=== PATIENT | female | born 1995 | race Caucasian/White ===

== ENCOUNTER 2020-09-17 21:50 | Emergency (ER) | payer OTHER, SELFPAY ==
--- NOTE | ~2020-09-17 | US_ITS ---
EXAMINATIONS: ULTRASOUND PELVIC, COMPLETE AND DOPPLER INTERROGATION CLINICAL INFORMATION: Bleeding. COMPARISON: None. TECHNIQUE: Transabdominal and transvaginal imaging was performed. Transvaginal imaging was performed for further evaluation of the endometrium and adnexa. Doppler interrogation spectral analysis was performed. FINDINGS: The uterus is of normal size and echogenicity measuring 9.3 x 5.2 x 5.2 cm. A regular homogeneous endometrium is identified measuring 0.9 cm. No intrauterine gestation is demonstrable. Both ovaries are of normal size and echogenicity. The right measures 3.4 x 2.0 x 2.0 cm. This measurement includes an approximately 13 mm cyst. The left measures 2.2 x 2.7 x 1.6 cm. Normal arterial and venous blood flow is present bilaterally. There is a small amount of likely physiologic pelvic free fluid. US/US OB limited IMPRESSION: No intrauterine gestation identified. No adnexal masses demonstrable. 13 mm right ovarian cyst.
--- NOTE | ~2020-09-17 | US_ITS ---
EXAMINATIONS: ULTRASOUND PELVIC, COMPLETE AND DOPPLER INTERROGATION CLINICAL INFORMATION: Bleeding. COMPARISON: None. TECHNIQUE: Transabdominal and transvaginal imaging was performed. Transvaginal imaging was performed for further evaluation of the endometrium and adnexa. Doppler interrogation spectral analysis was performed. FINDINGS: The uterus is of normal size and echogenicity measuring 9.3 x 5.2 x 5.2 cm. A regular homogeneous endometrium is identified measuring 0.9 cm. No intrauterine gestation is demonstrable. Both ovaries are of normal size and echogenicity. The right measures 3.4 x 2.0 x 2.0 cm. This measurement includes an approximately 13 mm cyst. The left measures 2.2 x 2.7 x 1.6 cm. Normal arterial and venous blood flow is present bilaterally. There is a small amount of likely physiologic pelvic free fluid. US/US OB transvaginal IMPRESSION: No intrauterine gestation identified. No adnexal masses demonstrable. 13 mm right ovarian cyst.
[2020-09-17 23:01] VITALS: BP 117/67; PULSE 91; RESP 18; TEMP 36.7; O2SAT 98; BMI 21.0
[2020-09-17 23:31] LABS: Basophils Absolute Auto 0.1 X10*3/uL (0.0-0.2); Basophils Percent Auto 0.6 % (0-2); Eosinophils Absolute Auto 0.5 X10*3/uL (0.0-0.4); Eosinophils Percent Auto 4.4 % (0-4); Hematocrit 35.1 % (37-47); Hemoglobin 11.5 g/dl (12.0-16.0); Imm Gran Abs Auto 0.03 X10*3/uL (0.00-0.03); Imm Gran Pct Auto 0.3 % (0.0-0.4); Lymphocytes Absolute Auto 2.6 X10*3/uL (1.2-4.9); Lymphocytes Percent Auto 24.2 % (20-40); MANUAL DIFF FLAG NO; Mean Corpuscular HGB Conc 32.8 g/dl (31.0-35.0); Mean Corpuscular Hemoglobin 30.8 pg (27.0-33.0); Mean Corpuscular Volume 94.1 fL (80-98); Mean Platelet Volume 9.5 fL (9.4-12.3); Monocytes Absolute Auto 0.8 X10*3/uL (0.1-1.2); Monocytes Percent Auto 7.1 % (2-11); Neutrophils Absolute Auto 6.9 X10*3/uL (2.0-8.3); Neutrophils Percent Auto 63.4 % (45-73); Platelet Count 273 X10*3/uL (160-400); Red Blood Count 3.73 X10*6/uL (4.20-5.50); Red Cell Distribution Width 12.6 % (11.0-16.0); White Blood Count 10.9 X10*3/uL (4.8-10.8)
[2020-09-17 23:34] LABS: Glucose Urine UA NEG (NEG); Leukocyte Esterase Urine NEG (NEG); Nitrite Urine NEG (NEG); Specific Gravity - Urine 1.025 (1.005-1.025); Urine Blood 3+ (NEG); Urine Ketones NEG (NEG); Urine Protein TRACE MG/DL (NEG-TRACE)
[2020-09-17 23:36] LABS: UPreg QC Valid YES; Urine Pregnancy WEAKLY POSITIVE (NEGATIVE)
[2020-09-17 23:37] LABS: Appearance Urine CLEAR; Color Urine YELLOW
[2020-09-17 23:42] LABS: Mucus Urine TRACE /LPF; Squamous Epithelial Cell Urine 2+ /LPF; WBC Urine 0-2 /HPF (0-4)
[2020-09-17 23:52] VITALS: BP 100/72; PULSE 81; RESP 16; TEMP 36.7; O2SAT 98
[2020-09-18 00:03] LABS: Anion Gap 11 (12-20); Blood Urea Nitrogen 9 mg/dL (9-16); Calcium 8.4 mg/dL (8.4-10.2); Carbon Dioxide 26 mmol/L (22-29); Chloride 106 mmol/L (96-108); Creatinine Clr Calc Pharmacy 101.5; Estimated Glomerular Filt Rate > 60; Glucose Random 111 mg/dL (60-115); Potassium 3.7 mmol/L (3.3-5.1); Sodium 139 mmol/L (135-145)
[2020-09-18 01:39] LABS: HCG Quantitative 61 mIU/mL
[2020-09-18 01:42] VITALS: BP 103/64; PULSE 81; RESP 16; TEMP 36.6; O2SAT 98
--- NOTE | 2020-09-18 01:47 | PC.NURSE ---
Patient reports bleeding lower abd pain started at around 6pm tonight. Patient has had recent stressors - moving for the past few days. Patient reports going through heather-pads since arriving in ER. Patients states vaginal bleeding seems to flow heavily intermit.
--- NOTE | 2020-09-18 01:50 | PC.NURSE ---
Patient leaving floor at this time to go for ultrasound.
--- NOTE | 2020-09-18 03:04 | ED.PREGNANCY ---
HPI - General Chief complaint: Vaginal Bleeding Stated complaint: Vaginal bleeding/Preg Time Seen by Provider: 09/18/20 01:17 Source: patient Mode of arrival: ambulatory History of Present Illness HPI Narrative: 24-year-old female presents with spotting/light vaginal bleeding since earlier today and states she has had a positive test at home. She says her LMP was early August but is also having lower abdominal cramping without urinary pain/burning/frequency or fever chills. Related Data Allergies Allergy/AdvReac Type Severity Reaction Status Date / Time No Known Allergies Allergy Verified 09/17/20 22:58 Review of Systems Review of Systems: Pertinent positives and negatives as stated in HPI 10 point review of systems is otherwise negative. PMFSH Past Medical History Source: nursing notes reviewed Medical History Asthma Social History Social History Advance Directives: No Physical Exam Vital Signs: Vital Signs: Last Vital Signs Temp 98 F 09/18/20 01:42 Pulse 81 09/18/20 01:42 Resp 16 09/18/20 01:42 BP 103/64 09/18/20 01:42 Pulse Ox 98 09/18/20 01:42 Body Mass Index 21.0 VITAL SIGNS: Reviewed. GENERAL: Well developed, well nourished, in no acute distress. HEAD: Normocephalic/atraumatic OROPHARYNX: no oral lesions noted, posterior pharynx clear NECK: Supple, no adenopathy LUNGS: Normal breath sounds. No adventitious sounds or accessory muscle use. SpO2<98> CARDIOVASCULAR: Regular rate and rhythm without noted murmurs ABDOMEN: Soft, non-tender, non-distended with bowel sounds. NEUROLOGIC: Alert and oriented x 4. Course Course Course Narrative: This is a 24-year-old female with history and clinical presentation consistent with and will rule out ectopic or UTI. On review of all investigations the urine is weakly positive and follow-up beta-hCG demonstrates a level of 61. Proceeded with the ultrasound which does not demonstrate IUP or evidence of ectopic, but this is likely due to early . All results and findings were discussed with the patient at bedside and she understands that it is too early for us to be able to determine whether not this is a possible miscarriage versus simply benign vaginal spotting during 1st trimester. Patient will follow-up with [facility] as this was the facility that manage her 1st . She was discharged in stable condition. MDM - OB/Uterine Contractions Lab Data Result diagrams: 09/17/20 23:23 09/17/20 23:23 Labs: Lab Results 09/17/20 09/17/20 09/17/20 Range/Units 23:23 23:23 23:23 WBC 10.9 H (4.8-10.8) X10*3/uL RBC 3.73 L (4.20-5.50) X10*6/uL Hgb 11.5 L (12.0-16.0) g/dl Hct 35.1 L (37-47) % MCV 94.1 (80-98) fL MCH 30.8 (27.0-33.0) pg MCHC 32.8 (31.0-35.0) g/dl RDW 12.6 (11.0-16.0) % Plt Count 273 (160-400) X10*3/uL MPV 9.5 (9.4-12.3) fL Immature Gran % (Auto) 0.3 (0.0-0.4) % Neut % (Auto) 63.4 (45-73) % Lymph % (Auto) 24.2 (20-40) % [place] % (Auto) 7.1 (2-11) % Eos % (Auto) 4.4 H (0-4) % Baso % (Auto) 0.6 (0-2) % Lymph # (Auto) 2.6 (1.2-4.9) X10*3/uL [place] # (Auto) 0.8 (0.1-1.2) X10*3/uL Eos # (Auto) 0.5 H (0.0-0.4) X10*3/uL Baso # (Auto) 0.1 (0.0-0.2) X10*3/uL Abs Immat Gran (auto) 0.03 (0.00-0.03) X10*3/uL Absolute Neuts (auto) 6.9 (2.0-8.3) X10*3/uL Absolute Nucleated RBC 0.000 (0.0-0.012) X10*3/uL Nucleated RBC % (auto) 0.0 (0.0-0.2) /100WBC Sodium (135-145) mmol/L Potassium (3.3-5.1) mmol/L Chloride (96-108) mmol/L Carbon Dioxide (22-29) mmol/L Anion Gap (12-20) BUN (9-16) mg/dL Creatinine (0.5-1.4) mg/dL Estim Creat Clear Calc Estimated GFR Random Glucose (60-115) mg/dL Calcium (8.4-10.2) mg/dL Beta HCG, Quant mIU/mL Urine Color YELLOW Urine Appearance CLEAR Urine pH 6.0 (5.0-8.0) Ur Specific [place] 1.025 (1.005-1.025) Urine Protein TRACE (NEG-TRACE) MG/DL Urine Glucose (UA) NEG (NEG) MG/DL Urine Ketones NEG (NEG) MG/DL Urine Blood 3+ H (NEG) Urine Nitrite NEG (NEG) Ur Leukocyte Esterase NEG (NEG) Urine RBC 5-9 H (0) /HPF Urine WBC 0-2 (0-4) /HPF Ur Squamous Epith Cells 2+ /LPF Urine Bacteria NONE /LPF Urine Mucus TRACE /LPF Urine Test WEAKLY POSITIVE H (NEGATIVE) 09/17/20 Range/Units 23:23 WBC (4.8-10.8) X10*3/uL RBC (4.20-5.50) X10*6/uL Hgb (12.0-16.0) g/dl Hct (37-47) % MCV (80-98) fL MCH (27.0-33.0) pg MCHC (31.0-35.0) g/dl RDW (11.0-16.0) % Plt Count (160-400) X10*3/uL MPV (9.4-12.3) fL Immature Gran % (Auto) (0.0-0.4) % Neut % (Auto) (45-73) % Lymph % (Auto) (20-40) % [place] % (Auto) (2-11) % Eos % (Auto) (0-4) % Baso % (Auto) (0-2) % Lymph # (Auto) (1.2-4.9) X10*3/uL [place] # (Auto) (0.1-1.2) X10*3/uL Eos # (Auto) (0.0-0.4) X10*3/uL Baso # (Auto) (0.0-0.2) X10*3/uL Abs Immat Gran (auto) (0.00-0.03) X10*3/uL Absolute Neuts (auto) (2.0-8.3) X10*3/uL Absolute Nucleated RBC (0.0-0.012) X10*3/uL Nucleated RBC % (auto) (0.0-0.2) /100WBC Sodium 139 (135-145) mmol/L Potassium 3.7 (3.3-5.1) mmol/L Chloride 106 (96-108) mmol/L Carbon Dioxide 26 (22-29) mmol/L Anion Gap 11 L (12-20) BUN 9 (9-16) mg/dL Creatinine 0.67 (0.5-1.4) mg/dL Estim Creat Clear Calc 101.5 Estimated GFR > 60 Random Glucose 111 (60-115) mg/dL Calcium 8.4 (8.4-10.2) mg/dL Beta HCG, Quant 61 mIU/mL Urine Color Urine Appearance Urine pH (5.0-8.0) Ur Specific [place] (1.005-1.025) Urine Protein (NEG-TRACE) MG/DL Urine Glucose (UA) (NEG) MG/DL Urine Ketones (NEG) MG/DL Urine Blood (NEG) Urine Nitrite (NEG) Ur Leukocyte Esterase (NEG) Urine RBC (0) /HPF Urine WBC (0-4) /HPF Ur Squamous Epith Cells /LPF Urine Bacteria /LPF Urine Mucus /LPF Urine Test (NEGATIVE) Discharge Plan Discharge Clinical Impression: Currently , First trimester bleeding Patient Disposition: Home, Self-Care Instructions: (ED), First Trimester (ED), Vitamins (By mouth) Additional Instructions: Please follow[facility] with [facility] for further obstetrical management. You may use Tylenol for any pain or fevers, body aches that you may experience at this time. Do not hesitate to return to the emergency department should you experience any acute worsening of your symptoms. Referrals: Physician,Unknown [Primary Care Provider] - 2 days
== END 2020-09-18 03:31 | disposition home or self-care (01) ==
PROVIDERS: Emergency Provider Student in an Organized Health Care Education/Training Program
DX: O20.9 Hemorrhage in early pregnancy, unspecified (principal); O34.81 Maternal care for other abnormalities of pelvic organs, first trimester; N83.201 Unspecified ovarian cyst, right side; Z3A.00 Weeks of gestation of pregnancy not specified
CPT/HCPCS: 36415; 76815; 76817; 80048; 81001; 81025; 84702; 85025; 99284